=== PATIENT | female | born 1975 | race Native Hawaiian/Other Pacific Islander ===

== ENCOUNTER 2018-02-07 19:34 | Emergency (ER) | payer OTHER ==
[~2018-02-07] VITALS: Ht 165.1 cm; Wt 73.0 kg
[2018-02-07 20:12] LABS: PLATELET COUNT 391 K/uL (152-353)
[2018-02-07] MEDS ORDERED: CLON0.1T16 PO (20:18)
[2018-02-07] MEDS ORDERED: AMLODIPINE BESYLATE PO (20:18)
[2018-02-07 20:30] LABS: POTASSIUM 3.7 mmol/L (3.6-5.2)
[2018-02-08 00:27] VITALS: BP 143/93; TEMP 98.1
== END 2018-02-08 00:29 ==
LOC: ED 19:34
DX: R10.33 Periumbilical pain (principal)
CPT/HCPCS: 36415; 80053; 81000; 81025; 85027; 96374; 99284; J1885